=== PATIENT | male | born 1980 | race Caucasian/White ===

== ENCOUNTER 2022-11-18 16:28 | Observation (INO) | payer SELFPAY ==
[2022-11-18] MEDS ORDERED: Sodium Chloride 0.9% 1,000 ML IV ONE (17:32)
[2022-11-18] MEDS ORDERED: Sodium Chloride 0.9% 10 ML Syringe FLUSH PRN (17:32)
[2022-11-18] MEDS ORDERED: Sodium Chloride 0.9% 2.5 ML Syringe FLUSH PRN (17:32)
[2022-11-18 18:14] LABS: CARBON DIOXIDE,CO2 23.6 mmol/L (21.0-32.0); POTASSIUM,K 4.4 mmol/L (3.5-5.1)
[2022-11-18] MEDS ORDERED: Iopamidol 755 MG/ML 500 ML Multipack Bottle IVPUSH STA (18:40)
[2022-11-18 18:45] LABS: CORONAVIRUS COVID-19 NAA NEGATIVE (NEGATIVE); INFLUENZA A NAA NEGATIVE (NEGATIVE); INFLUENZA B NAA NEGATIVE (NEGATIVE)
[2022-11-18] MEDS: Sodium Chloride 0.9% 1,000 ML IV SCH (20:39)
[2022-11-18] MEDS ORDERED: LORazepam 2 MG/ML SDV IM PRN (23:31)
[2022-11-18] MEDS ORDERED: Dextrose 5%-0.45% NaCl 1,000 ML IV SCH (23:45)
[2022-11-19 01:00] LABS: LIPASE 78 U/L (73-393)
[2022-11-19 07:13] LABS: CARBON DIOXIDE,CO2 22.5 mmol/L (21.0-32.0)
[2022-11-19] MEDS: Sodium Chloride 0.9% 1,000 ML IV SCH ×2 (07:44→17:12)
[2022-11-19] MEDS ORDERED: Aluminum Hydroxide/Magnesium Hydroxide/Simethicone XS Susp 30 ML Cup PO PRN (09:49)
[2022-11-20] MEDS: Sodium Chloride 0.9% 1,000 ML IV SCH (03:40)
[2022-11-20] MEDS ORDERED: Acetaminophen 325 MG Tab PO PRN (05:50)
[2022-11-20 07:36] LABS: CARBON DIOXIDE,CO2 25.7 mmol/L (21.0-32.0); POTASSIUM,K 3.9 mmol/L (3.5-5.1)
== END 2022-11-20 11:15 | disposition home or self-care (01) ==
LOC: MW.ED 16:28 → MW.MS 20:29
PROVIDERS: ADMIT Pediatrics; ATTEND Pediatrics
DX: K62.5 Hemorrhage of anus and rectum (principal); K52.9 Noninfective gastroenteritis and colitis, unspecified; Z79.899 Other long term (current) drug therapy; Z88.0 Allergy status to penicillin; Z87.891 Personal history of nicotine dependence; Z20.822 Contact with and (suspected) exposure to COVID-19
CPT/HCPCS: 0240U; 36415; 74177; 74177-26; 80048; 80053; 82150; 83690; 83735; 85025; 85652; 86850; 86900; 86901; 87045; 87046; 87324; 87328; 87329; 87338; 87449; 87899; 96360; 96361; 99221; 99232; 99238; 99284; 99285-25; A9270-GY; G0378; J3490; J7030; Q9967

== ENCOUNTER 2024-11-21 17:59 | Emergency (ER) | payer BC ==
[2024-11-21] MEDS: Diphtheria,Pertussis(Acell),Tetanus Vaccine 0.5 ML Syringe IM ONE (19:15)
[2024-11-21] MEDS: Lidocaine 2% 5 ML SDV INJECT ONE (19:17)
[2024-11-21] MEDS: Cephalexin 500 MG Cap PO ONE (19:59)
== END 2024-11-21 20:23 | disposition home or self-care (01) ==
LOC: MW.ED 17:59
DX: S61.001A Unspecified open wound of right thumb without damage to nail, initial encounter (principal); Z23 Encounter for immunization; Z75.8 Other problems related to medical facilities and other health care; Z88.0 Allergy status to penicillin; W26.8XXA Contact with other sharp object(s), not elsewhere classified, initial encounter
CPT/HCPCS: 12001; 90471; 99283; A9270; J2003